=== PATIENT | female | born 1995 | race Caucasian/White ===

== ENCOUNTER 2018-10-11 10:41 | Emergency (ER) | payer BC ==
[2018-10-11 10:48] VITALS: BP 103/54; PULSE 73; RESP 16; TEMP 97.8; O2SAT 97
[2018-10-11 10:49] VITALS: BMI 18.3
[2018-10-11] MEDS ORDERED: Tdap Vaccine 0.5 ml Vial (10-64 yrs) IM ONE ×2 (11:19→11:24)
--- NOTE | 2018-10-11 11:32 | ED PDOC ---
HPI: Skin/Bite Injury Time Seen by Provider: 10/11/18 10:55 Chief Complaint (Nursing): Foreign Body Chief Complaint (Provider): Foreign Body bilateral ears History Per: Patient History/Exam Limitations: no limitations Onset/Duration Of Symptoms: Days (four) Current Symptoms Are (Timing): Still Present (Pt presents to the ED with bilateral ear piercings in which the butterfly back was removed and is contained in the lower lobes. Backings are visible with digital inspection) Past Medical History Reviewed: Historical Data, Nursing Documentation, Vital Signs Vital Signs: Last Vital Signs Temp 97.8 F 10/11/18 10:48 Pulse 73 10/11/18 10:48 Resp 16 10/11/18 10:48 BP 103/54 L 10/11/18 10:48 Pulse Ox 97 10/11/18 10:48 - Family History Family History: States: Unknown Family Hx - Home Medications Home Medications: Ambulatory Orders Medication Instructions Recorded Cephalexin [cephalexin] 500 mg PO QID #28 cap 10/11/18 - Allergies Allergies/Adverse Reactions: Allergies Allergy/AdvReac Type Severity Reaction Status Date / Time No Known Allergies Allergy Verified 08/20/16 23:31 Review of Systems ENT: Positive for: Other (bilateral foreign body) Physical Exam - Reviewed Nursing Documentation Reviewed: Yes Vital Signs Reviewed: Yes - Physical Exam Appears: Positive for: Well, Non-toxic, No Acute Distress. Negative for: Uncomfortable Head Exam: Positive for: ATRAUMATIC, NORMAL INSPECTION Skin: Positive for: Normal Color, Warm, Dry. Negative for: Diaphoresis, Pallor, Rash (there is no signs of infection; no erythema, no discharge, no drainage, no warmth) Neck: Positive for: Normal, Painless ROM, Supple. Negative for: Decreased ROM Cardiovascular/Chest: Positive for: Regular Rate, Rhythm Respiratory: Positive for: Normal Breath Sounds Pulses-Carotid (L): 2+ Pulses-Carotid (R): 2+ Pulses-Post. Tibialis (R): 2+ Pulses-Radial (L): 2+ - ECG O2 Sat by Pulse Oximetry: 97 Medical Decision Making Medical Decision Making: I: Foreign body bilateral ear lobes P: Remove FB The foreign bodies were visualized and removed with aid of surgical clamps on each side. No lidocaine was necessary and the patient tolerated the procedure well. THe backings were returned to the patient The pateient was advised to not reinsert earrings into the peircings for 7 days, given a Tdap booster and rx abx Disposition - Clinical Impression Clinical Impression: Foreign bodies - Patient ED Disposition Is Patient to be Admitted: No Doctor Will See Patient In The: Office Counseled Patient/Family Regarding: Diagnosis, Need For Followup, Rx Given - Disposition Disposition: Routine/Home Disposition Time: 11:36 Condition: STABLE Prescriptions: Cephalexin [cephalexin] 500 mg PO QID #28 cap Instructions: Foreign Body in Skin, Foreign Body in Skin (DC)
== END 2018-10-11 11:43 | disposition home or self-care (01) ==
LOC: H.ER 10:41
DX: T16.1XXA Foreign body in right ear, initial encounter (principal); T16.2XXA Foreign body in left ear, initial encounter; Z23 Encounter for immunization